=== PATIENT | female | born 1950 | race Two or more races ===

== ENCOUNTER 2023-08-22 07:29 | Outpatient (CLI) | payer OTHER ==
[2023-08-22 09:06] LABS: HEMATOCRIT 29.7 % (36.0-45.00); HEMOGLOBIN 10.3 g/dL (12.0-15.00); MEAN CELL VOLUME 89.8 fL (80.00-100.00); MEAN CORPUSCULAR HEMOGLOBIN 31.2 pg (27.00-32.0); MEAN CORPUSCULAR HGB CONC 34.8 g/dl (32.0-36.0); PLATELET COUNT 221 K/uL (150-450); RED BLOOD COUNT 3.31 M/uL (4.00-6.00); RED CELL DISTRIBUTION WIDTH 13.5 % (11.5-14.5)
[2023-08-22 09:45] LABS: PARTIAL THROMBOPLASTIN TIME 26.4 SECONDS (22.0-34.0); PROTHROMBIN TIME 10.5 SECONDS (9.0-11.5)
[2023-08-22 10:17] LABS: ALBUMIN 3.8 gm/dL (3.4-5.0); BILIRUBIN TOTAL 0.52 mg/dL (0.3-1.2); CALCIUM 9.5 mg/dL (8.5-10.1); CREATININE SERUM 1.37 mg/dL (0.55-1.02); GFR 38.01; GLOBULINA 3.2 G/DL (2.4-3.5); POTASSIUM 4.43 mEq/L (3.5-5.1)
[2023-08-22 10:42] LABS: URINE APPEARANCE Clear; URINE BILIRRUBIN Negative (NEGATIVE); URINE BLOOD Negative; URINE COLOR Yellow; URINE LEUKOCYTE Negative; URINE NITRATE Negative; URINE UROBILINOGEN 0.2 E.U./dl
[2023-08-22 10:48] LABS: URINE BACTERIA 287.2 uL (0.0-1933); URINE EPITHELIAL CELLS 15.1 uL (0.0-38.8); URINE WBC 16.3 uL (0.0-23.2)
[2023-08-22 10:52] LABS: URINE GLUCOSE >=1000 MG/DL (NEGATIVE); URINE PROTEIN 100 (NEGATIVE); URINE RBC 0.5 uL (0.0-20.8)
== END 2023-08-22 07:32 | disposition home or self-care (01) ==
LOC: LAB 07:29 → EDBD 07:29 → LAB 07:32
PROVIDERS: ATTEND Surgery
DX: Z01.810 Encounter for preprocedural cardiovascular examination (principal); D12.5 Benign neoplasm of sigmoid colon; K63.5 Polyp of colon; K62.89 Other specified diseases of anus and rectum; K64.2 Third degree hemorrhoids; K62.5 Hemorrhage of anus and rectum; K59.09 Other constipation; I10 Essential (primary) hypertension

== ENCOUNTER 2023-08-22 13:29 | Inpatient (IN) | payer OTHER ==
[~2023-08-22] VITALS: Ht 154.9 cm; Wt 70.8 kg
[2023-09-13] MEDS ORDERED: NORVASC5 MG PO (13:14)
[2023-09-13] MEDS ORDERED: ZOCOR40 MG PO (13:14)
[2023-09-13] MEDS ORDERED: HUMULIN N100 UNIT/2 (13:15)
[2023-09-13] MEDS ORDERED: CILOSTAZOL50 MG PO (13:15)
[2023-09-13] MEDS ORDERED: FAXIGA PO (13:15)
[2023-09-13] MEDS ORDERED: CHILDREN'S ASPI81 MG PO (13:16)
[2023-09-13] MEDS ORDERED: AVAPRO300 MG PO (13:16)
[2023-09-22] MEDS ORDERED: FARXIGA10 MG (09:49)
[2023-09-22] MEDS ORDERED: HUMULIN 70100 UNIT/2 (09:49)
[2023-09-22] MEDS ORDERED: IRBESARTAN150 MG (09:49)
[2023-09-23 08:32] LABS: ALBUMIN 3.1 gm/dL (3.4-5.0); CALCIUM 8.2 mg/dL (8.5-10.1); CREATININE SERUM 1.41 mg/dL (0.55-1.02); GFR 36.66; MAGNESIUM 1.7 mg/dL (1.8-2.4); PHOSPHOROUS 3.4 mg/dL (2.5-4.9); POTASSIUM 4.41 mEq/L (3.5-5.1)
[2023-09-23 08:43] LABS: HEMATOCRIT 27.3 % (36.0-45.00); HEMOGLOBIN 9.4 g/dL (12.0-15.00); MEAN CELL VOLUME 91.1 fL (80.00-100.00); MEAN CORPUSCULAR HEMOGLOBIN 31.3 pg (27.00-32.0); MEAN CORPUSCULAR HGB CONC 34.6 g/dl (32.0-36.0); PLATELET COUNT 213 K/uL (150-450); RED CELL DISTRIBUTION WIDTH 14.1 % (11.5-14.5)
[2023-09-24 07:28] LABS: HEMATOCRIT 26.5 % (36.0-45.00); HEMOGLOBIN 9.2 g/dL (12.0-15.00); MEAN CELL VOLUME 90.2 fL (80.00-100.00); MEAN CORPUSCULAR HEMOGLOBIN 31.1 pg (27.00-32.0); MEAN CORPUSCULAR HGB CONC 34.5 g/dl (32.0-36.0); PLATELET COUNT 198 K/uL (150-450); RED BLOOD COUNT 2.94 M/uL (4.00-6.00); RED CELL DISTRIBUTION WIDTH 14.3 % (11.5-14.5)
[2023-09-24 07:34] LABS: CALCIUM 8.6 mg/dL (8.5-10.1); CREATININE SERUM 1.27 mg/dL (0.55-1.02); GFR 41.36; MAGNESIUM 2.5 mg/dL (1.8-2.4); POTASSIUM 4.13 mEq/L (3.5-5.1)
[2023-09-25] MEDS ORDERED: HYOSCYAMINE0.125 M1 SL (19:28)
== END 2023-09-25 20:18 | disposition home or self-care (01) | DRG 330 ==
LOC: O/R 09-22 05:38 → SURG 09-22 11:00 → SURH 09-22 14:11
PROVIDERS: Surgery; ADMIT Surgery; ATTEND Surgery
PROC: 07BC4ZX Excision of Pelvis Lymphatic, Percutaneous Endoscopic Approach, Diagnostic (ICD-10-PCS; 2023-09-22)
PROC: 0DNW4ZZ Release Peritoneum, Percutaneous Endoscopic Approach (ICD-10-PCS; 2023-09-22)
PROC: 8E0Y4CZ Robotic Assisted Procedure of Lower Extremity, Percutaneous Endoscopic Approach (ICD-10-PCS; 2023-09-22)
PROC: 4A1BXSH Monitoring of Gastrointestinal Vascular Perfusion using Indocyanine Green Dye, External Approach (ICD-10-PCS; 2023-09-22)
PROC: 0DBL4ZZ Excision of Transverse Colon, Percutaneous Endoscopic Approach (ICD-10-PCS; principal; 2023-09-22 11:00)
DX: D12.5 Benign neoplasm of sigmoid colon (principal); K62.5 Hemorrhage of anus and rectum; K63.5 Polyp of colon; K62.89 Other specified diseases of anus and rectum; K64.2 Third degree hemorrhoids; K59.09 Other constipation
CPT/HCPCS: 44207; 38570; 44213; S2900